=== PATIENT | male | born 1950 | race American Indian/Alaskan Native ===

== ENCOUNTER 2018-11-27 12:43 | Day surgery (SDC) | payer OTHER ==
[~2018-11-27 12:43] MED LIST: NACL 0.9% 1000 ML 1,000 ML IV SCH
[2018-11-27] MEDS ORDERED: DIPRIVAN 10 MG/ML IV ONE ×2 (16:30)
[2018-11-27] MEDS ORDERED: WATER FOR IRRIG STERILE IR ONE (16:34)
--- NOTE | 2018-11-27 17:40 | Operative Report ---
Operative Report Operative Report: Date of procedure: 11/27/2018 Procedure: Colonoscopy with ablation of rectal polyps. Attending physician: Olayinka Alvarado MD Slot Host: Olayinka Alvarado MD Indication: Patient is a 68-year-old male who presents for screening colonoscopy. Patient has a past history of colon polyps and his last colonoscopy was 15 years ago. A colonoscopy serves to evaluate patient so that treatment may be directed based on the findings. Consent: Informed consent was obtained after advising the patient and family regarding nature of this procedure, its indications, potential benefits as well as possible complications including but not limited to bleeding perforation and adverse reaction to medication, infection as well as other cardiopulmonary complications. An informed written and verbal consent was then obtained after due opportunity was provided for questions and answers. Monitoring: Patient was monitored continuously with pulse oximetry and electrocardiographic recordings as well as blood pressure recordings. Vital signs remained stable throughout this procedure with no untoward events. Preoperative assessment: Patient was assessed immediately prior to this procedure for capacity to tolerate monitored anesthesia care and moderate sedation as well as general anesthesia. Patient's ASA classification is 2, Mallampati class is 2, Hyomental distance is 3. Instrument: [employer] video colonoscope Medications: Propofol given intravenously in divided doses. For details please refer to anesthesia records. Description of procedure: Patient was placed in the left lateral decubitus position after achieving sedation, a digital rectal examination was performed following which the colonoscope was introduced into the anal verge and advanced to the cecum which was identified by the ileocecal valve, the appendiceal orifice, as well as by the cecal strap and direct transillumination. The colonoscope was subsequently withdrawn with careful inspection of all mucosal surfaces. Patient tolerated this procedure well and was subsequently taken to the recovery room. The following findings were noted. Findings: The procedure was technically difficult and prolonged. Patient had obstructive sleep apnea and was difficult to sedate and maintain sedation. The preparation was relatively poor with substantial retained thick liquid stool in various sections of the colon. There were however no gross mucosal abnormalities in the cecum and ascending colon transverse colon and descending colon. Some significant retained stool were again seen in the sigmoid colon. No other abnormalities seen in the sigmoid colon. In the rectum, patient had 2 diminutive flat polyps each measuring approximately 5 mm. These are completely ablated. On retroflex view, patient had internal hemorrhoids. Patient also had a few scattered diverticula seen in the sigmoid colon and descending colon and also in the ascending colon. Impression: Moderately tortuous colon. Diverticulosis. Rectal polyps status post ablation. Retained stool. Internal hemorrhoids. Plan: High fiber diet Repeat colonoscopy in one year due to poor colonoscopic preparation Follow up with patient as an outpatient
--- NOTE | 2018-11-27 17:41 | Discharge Summary ---
Short Stay Discharge Plan Activity: advance as tolerated Weight Bearing Status: Weight Bear as Tolerated Diet: regular
[2018-11-27 18:11] VITALS: BP 144/76
== END 2018-11-27 12:44 | disposition home or self-care (01) ==
LOC: GIO 12:43
PROVIDERS: ATTEND Internal Medicine Gastroenterology
DX: Z12.11 Encounter for screening for malignant neoplasm of colon (principal); K62.1 Rectal polyp; K57.30 Diverticulosis of large intestine without perforation or abscess without bleeding; K64.8 Other hemorrhoids; J44.9 Chronic obstructive pulmonary disease, unspecified; E66.9 Obesity, unspecified; G47.33 Obstructive sleep apnea (adult) (pediatric); Z86.010 Personal history of colon polyps; Z88.0 Allergy status to penicillin; Z79.899 Other long term (current) drug therapy; Z87.891 Personal history of nicotine dependence; Z98.890 Other specified postprocedural states; Z68.41 Body mass index [BMI] 40.0-44.9, adult
CPT/HCPCS: 45388; J2704; J7030